=== PATIENT | female | born 1975 | race American Indian/Alaskan Native ===

== ENCOUNTER 2017-08-11 10:04 | Outpatient (CLI) | payer OTHER ==
--- NOTE | 2017-08-11 16:55 | Ultrasound Report ---
THYROID ULTRASOUND:08/11/17 10:04:00 CLINICAL: Goiter. Enlarged thyroid. FINDINGS: High-resolution ultrasound demonstrated a mildly enlarged thyroid with a mild heterogeneous echo pattern. The right lobe measures 4.8 x 1.6 x 2.7cm. The left lobe measures 4.9 x 1.8 x 2.5cm. The isthmus measures 6 mm AP thickness. Numerous bilateral tiny benign cysts. A single solid mildly hypoechoic nodule of the right lower pole measures 4 x 2 x 4 mm. IMPRESSION: Mildly enlarged multinodular and multicystic thyroid. Recommend six month followup ultrasound to reevaluate the solid nodule of the right lower pole.
== END 2017-08-11 10:05 | disposition home or self-care (01) ==
LOC: SPVWC 10:04
PROVIDERS: ATTEND Family Medicine
DX: E04.2 Nontoxic multinodular goiter (principal); E04.9 Nontoxic goiter, unspecified
CPT/HCPCS: 76536

== ENCOUNTER 2017-11-05 10:08 | Outpatient (CLI) | payer OTHER ==
--- NOTE | 2017-11-05 15:40 | Ultrasound Report ---
TRANSABDOMINAL AND TRANSVAGINAL PELVIC ULTRASOUND: 11/05/17 10:08:00 CLINICAL: Uterine enlargement. FINDINGS: Transabdominal and transvaginal pelvic ultrasound demonstrated a mildly enlarged uterus measuring 13.5 x 5.2 x 6.7 cm. The myometrium has a heterogeneous echo pattern suggesting numerous tiny fibroids. A distinct measurable anterior fundal intramural fibroid measures 8 x 7 x 5 mm.The endometrium is normal and measures 6.0 mm AP thickness. Normal ovaries. The right ovary measures 2.3 x 1.7 x 2.0cm. The left ovary measures 2.8 x 2.2 x 2.5 cm. A dominant follicle in the left ovary measures 1.9 cm. No adnexal mass. No free fluid. Normal urinary bladder. IMPRESSION: 1. Small uterine leiomyomata and mild uterine enlargement. 2. Normal endometrium. 3. Normal ovaries.
--- NOTE | 2017-11-05 15:47 | Mammography Report ---
BILATERAL DIGITAL SCREENING MAMMOGRAM with CAD: 11/05/17 10:08:00 CLINICAL: Routine screening.History of a right surgical biopsy in 2011 COMPARISON:None available. However, we will request a comparison mammogram from [place], [place]. FINDINGS: The breasts are almost entirely fatty.A right upper outer biopsy clip and mild benign scar at the clip. No mass, suspicious architectural distortion or suspicious calcifications. IMPRESSION: No mammographic evidence of malignancy. BI-RADS CATEGORY: 2 -- Benign RECOMMENDATION: Routine mammographic screening in one year. We will attempt to obtain a comparison mammogram and amend this report when the mammograms are compared. COMMENT: Patient follow-up letters are generated by our [employer] application.
== END 2017-11-05 10:09 | disposition home or self-care (01) ==
LOC: SPVWC 10:08
PROVIDERS: ATTEND Family Medicine
DX: Z12.31 Encounter for screening mammogram for malignant neoplasm of breast (principal); N85.2 Hypertrophy of uterus; D25.1 Intramural leiomyoma of uterus
CPT/HCPCS: 76830; 76856; 77067

== ENCOUNTER 2018-02-02 07:50 | Outpatient (CLI) | payer OTHER ==
[2018-02-02 08:21] LABS: Blood Urea Nitrogen 11 mg/dL (7-17)
--- NOTE | 2018-02-02 20:49 | Magnetic Resonance Report ---
FINAL REPORT PROCEDURE: MR PELVIS WO/W CON TECHNIQUE: Magnetic resonance imaging of the pelvis was performed using standard sequences before and after the IV injection of paramagnetic contrast. CPT 06920 HISTORY: SUBMUCOUS LELOMYOMA OF UTERUS COMPARISON: No prior studies are available for comparison. FINDINGS: Uterus: Uterus is normal in size. There is a 9 millimeter intramural mass in the anterior body of the uterus suggesting E possible fibroid. There is no discrete submucosal or endometrial abnormality. The endometrium is normal in thickness. There is no endometrial fluid. Ovaries and adnexae: Normal. Bladder: Normal. Pelvic musculature: Normal. Free fluid: None. Adenopathy or mass: None. Abnormal contrast enhancement: None. IMPRESSION: Uterus is normal in size. There is a 9 millimeter intramural mass in the anterior body of the uterus suggesting E possible fibroid. There is no discrete submucosal or endometrial abnormality. The endometrium is normal in thickness. There is no endometrial fluid. The ovaries are unremarkable. There is no pelvic mass or adenopathy. There is no free pelvic fluid.
== END 2018-02-02 07:51 | disposition home or self-care (01) ==
LOC: MRI 07:50
PROVIDERS: ATTEND Radiology Diagnostic Radiology
DX: D25.0 Submucous leiomyoma of uterus (principal); Z88.1 Allergy status to other antibiotic agents
CPT/HCPCS: 36415; 72197; 82565; 84520; A9577